=== PATIENT | male | born 1965 | race Caucasian/White ===

== ENCOUNTER 2019-01-10 14:11 | Outpatient (CLI) | payer OTHER ==
[2019-01-10 14:29] LABS: BASOPHILS % 2.4 % (0.0-1.5); EOSINOPHILS % 1.2 % (0.0-6.8); MEAN CORPUSCULAR HEMOGLOBIN 31.3 pg (28.0-34.0); MONOCYTES % 3.8 % (0.0-11.0); NEUTROPHILS # 6.1 # k/uL (1.4-7.7)
--- NOTE | 2019-01-10 14:50 | Diagnostic Imaging Report ---
SANIYA OLIVEIRA [facility] [address] [facility] [address] [place], [place]. [address] Report Submission Date: Jan 10, 2019 2:50:06 PM CDT Patient Study Name: JOSH PEREZ Date: Jan 10, 2019 2:23:41 PM CDT Modality Type: DX Gender: M Description: CHEST 2VIEW : 63 Institution: [facility] Physician: SANIYA OLIVEIRA Examination: PA and lateral chest. History: Evaluate lung goldstein. VIRUS AND COUGH X SEVERAL WEEKS. Comparison exam: None provided. Findings: PA and lateral views of the chest demonstrates a normal cardiac and mediastinal silhouette. No focal infiltrate. No blunting of the costophrenic margins. Osseous structures are appropriate for age. Impression: No acute pulmonary process. Electronically signed on Jan 10, 2019 2:50:06 PM CDT by: Juan Diego BASHIR
[2019-01-10 15:14] LABS: eGFR (Non-African) > 60
== END 2019-01-10 14:15 ==
LOC: LAB 14:11
PROVIDERS: ATTEND Nurse Practitioner Family
DX: R05 Cough (principal)
CPT/HCPCS: 36415; 71046; 80053; 85025

== ENCOUNTER 2019-08-16 14:05 | Outpatient (CLI) | payer OTHER ==
[2019-08-16 14:35] LABS: BASOPHILS % 0.3 % (0.0-1.5); NEUTROPHILS # 3.4 # k/uL (1.4-7.7)
[2019-08-16 15:15] LABS: HDL 51 mg/dL (>40); eGFR (Non-African) > 60
== END 2019-08-16 14:10 ==
LOC: LAB 14:05
PROVIDERS: ATTEND Internal Medicine Cardiovascular Disease
DX: E78.5 Hyperlipidemia, unspecified (principal); R00.2 Palpitations; R03.0 Elevated blood-pressure reading, without diagnosis of hypertension
CPT/HCPCS: 36415; 80053; 80061; 85025